=== PATIENT | female | born 1995 | race Caucasian/White ===

== ENCOUNTER 2018-02-21 23:30 | Emergency (ER) | payer OTHER ==
[~2018-02-21] VITALS: Ht 160 cm; Wt 57.8 kg
[2018-02-22] MEDS ORDERED: FLEXERIL10 MG PO (02:24)
[2018-02-22] MEDS ORDERED: MOTRIN800 MG PO (02:24)
[2018-02-22 02:30] VITALS: BP 122/86
== END 2018-02-22 02:41 | disposition home or self-care (01) ==
LOC: EME 23:30
DX: S16.1XXA Strain of muscle, fascia and tendon at neck level, initial encounter (principal); S09.90XA Unspecified injury of head, initial encounter; M54.6 Pain in thoracic spine; V43.52XA Car driver injured in collision with other type car in traffic accident, initial encounter; Y92.411 Interstate highway as the place of occurrence of the external cause; F17.200 Nicotine dependence, unspecified, uncomplicated
CPT/HCPCS: 70450; 72070; 72125; 99281; 99284